=== PATIENT | male | born 1990 | race Caucasian/White ===

== ENCOUNTER 2016-09-29 21:03 | Emergency (ER) | payer BC ==
[2016-09-29 20:38] LABS: INFLUENZA A SCREEN NEGATIVE (NEGATIVE); INFLUENZA B SCREEN NEGATIVE (NEGATIVE)
[2016-09-29 21:06] LABS: ER CBC TAT 0 Hrs 11 Mins; HEMATOCRIT 40.2 % (40.0-51.0); MEAN CORPUS HGB CONC 34.8 g/dL (32.0-36.0); MEAN CORPUSCULAR HEMOGLOB 30.4 pg (26.0-34.0); MEAN CORPUSCULAR VOLUME 87.4 fL (80-100); MEAN PLATELET VOLUME 9.1 fL (9.2-13.0); PLATELET COUNT 168 10/3/uL (150-400); WHITE BLOOD CELLS 11.9 10/3/uL (4.5-10.5)
[2016-09-29 21:07] LABS: MANUAL DIFF YES %
[2016-09-29 21:23] LABS: A/G RATIO 0.9 (0.7-1.9); ALBUMIN 3.7 G/DL (3.5-5.0); ALKALINE PHOSPHATASE 46 U/L (45-117); BUN (BLOOD UREA NITROGEN) 6 MG/DL (6-23); CALCIUM, SERUM 8.5 MG/DL (8.5-10.4); CHLORIDE, SERUM 101 MMOL/L (96-112); CO2 (CARBON DIOXIDE) 28 MMOL/L (24-34); CREATININE 0.82 MG/DL (0.70-1.30); GFR AFRICAN AMERICAN 141 ML/MIN (>=60); GFR NON AFRICAN AMERICAN 122 ML/MIN (>=60); GLOBULIN 3.9 G/DL (2.5-4.1); GLUCOSE, SERUM 103 MG/DL (60-99); POTASSIUM, SERUM 3.5 MMOL/L (3.5-5.3); SGOT(AST) 80 U/L (5-40); SGPT(ALT) 58 U/L (5-65); SODIUM, SERUM 138 MMOL/L (135-148); TOTAL BILIRUBIN 0.4 MG/DL (0-1.2); TOTAL PROTEIN 7.6 G/DL (6.0-8.5)
[2016-09-29 21:26] LABS: BAND NEUTROPHILS 8 %; ER DIFF TAT 0 Hrs 31 Mins; LYMPHOCYTES 6 %; LYMPHOCYTES ABSOLUTE (CALC) 0.71 10/3/uL (0.67-4.30); MONOCYTES 8 %; MONOCYTES ABSOLUTE (CALC) 0.95 10/3/uL (0.21-1.20); NEUTROPHILS ABSOLUTE (CALC) 10.23 10/3/uL (2.02-8.40); PLATELET ESTIMATE ADQ (ADEQUATE); RBC MORPHOLOGY NORM (NORMAL); SEGMENTED NEUTROPHIL (0) 78 %; TOTAL NUCLEATED CELLS 100
== END 2016-09-29 21:40 | disposition home or self-care (01) ==
LOC: ER 21:03
PROVIDERS: Nurse Practitioner Acute Care
DX: J06.9 Acute upper respiratory infection, unspecified (principal); J40 Bronchitis, not specified as acute or chronic; F17.200 Nicotine dependence, unspecified, uncomplicated
CPT/HCPCS: 71020; 80053; 85025; 87804; 96372; 99284; J1885